=== PATIENT | female | born 1995 | race African-American/Black ===

== ENCOUNTER 2019-02-16 00:24 | Emergency (ER) | payer BC, OTHER ==
[2019-02-16] MEDS ORDERED: NS 1,000 ML IV ONE ×3 (00:34→06:06)
--- NOTE | 2019-02-16 00:34 | EDPHY ---
H & P Stated Complaint: "10 shots of vodka", "dehydration", anxiety Time Seen by Provider: 02/16/19 00:34 HPI/ROS: HPI CHIEF COMPLAINT: Alcohol intoxication HISTORY OF PRESENT ILLNESS: Patient is a 23-year-old female, presents to the emergency room for acute alcohol intoxication. Her friends brought her in out of concern how intoxicated she was. She has a chronic alcoholic. She drinks alcohol daily. In the past she has had alcohol liver disease, per the patient. States she had multiple shots 10 shots of vodka tonight. Her friends became concerned about how intoxicated she was so brought her to the emergency room for evaluation Patient states that she drinks alcohol due to anxiety, denies SI or HI, denies wanting to hurt herself or anybody else. Past Medical History: Medical history for anxiety, alcoholism daily alcohol use Past Surgical History: No recent surgery Social History: Daily alcohol use. Denies drugs or tobacco. Family History: Noncontributory ROS REVIEW OF SYSTEMS: Somewhat limited due to alcohol intoxication. Exam Constitutional intoxicated, smells of alcohol triage nursing summary reviewed, vital signs reviewed, awake/alert. Eyes normal conjunctivae and sclera, EOMI, PERRLA. HENT conjunctiva injected, normal inspection, atraumatic, moist mucus membranes , no epistaxis, neck supple/ no meningismus, no raccoon eyes. Respiratory clear to auscultation bilaterally, normal breath sounds, no respiratory distress, no wheezing. Cardiovascular rate normal, regular rhythm, no murmur, no edema, distal pulses normal. Gastrointestinal soft, non-tender, no rebound, no guarding, normal bowel sounds, no distension, no pulsatile mass. Genitourinary no CVA tenderness. Musculoskeletal no midline vertebral tenderness, full range of motion, no calf swelling, no tenderness of extremities, no meningismus, good pulses, neurovascularly intact. Skin pink, warm, & dry, no rash, skin atraumatic. Neurologic intoxicated, slurring her speech, awake, alert and oriented x 3, AAOx3, moves all 4 extremities equally, motor intact, sensory intact, CN II-XII intact, normal cerebellar, normal vision Psychiatric normal mood/affect. Heme/Lymph/Immune no lymphadenopathy. Differential Diagnosis: Includes but is not limited to in a particular order acute alcohol intoxication, dehydration, electrolyte disturbance Medical Decision Making: Plan for this patient IV establishment with IV fluid bolus basic labs, alcohol level, re-evaluate. Re-evaluation: Serum alcohol 364. 0605: Patient re-evaluated this time. Patient is clinically sober. She is stable gait, no ataxia, answers questions appropriately. She reports to me she drinks alcohol for anxiety. She denies suicidal homicidal ideation. I offered her to go to detox today however she declined this. I offered to go to detox with Librium for alcohol withdrawal however she does not want to do that she wants to go home. Her friends are at bedside/roommates. They are okay with this plan. We discussed about return precautions she understands return emergency room she develops worsening symptoms this includes vomiting, alcohol withdrawal, further alcohol intoxication. Highly recommend she stops drinking alcohol. I offered her resources. 0478: Patient re-evaluated this time resting comfortably. Heart rate 106. She is requesting to be discharged. She is clinically sober. Her father is at bedside. They would like to take her home. I did recommend that she goes to detox today, however she has declined this. Father at bedside is fine with this. They do understand that if she starts vomiting or not doing well at home they should seek medical attention or return to the emergency room. They are comfortable this plan. Source: Patient - Personal History LMP (Females 10-55): IUD In Place Current Tetanus Diphtheria and Acellular Pertussis (TDAP): Yes - Medical/Surgical History Hx Asthma: No Hx Chronic Respiratory Disease: No Hx Diabetes: No Hx Cardiac Disease: No Hx Renal Disease: No Hx Cirrhosis: No Hx Alcoholism: Yes Hx HIV/AIDS: No Hx Splenectomy or Spleen Trauma: No Other PMH: Anxiety, ETOH abuse - Social History Smoking Status: Never smoked Constitutional: Initial Vital Signs Temperature (C) 36.6 C 02/16/19 00:29 Heart Rate 131 H 02/16/19 00:29 Respiratory Rate 17 02/16/19 00:29 Blood Pressure 162/106 H 02/16/19 00:29 O2 Sat (%) 94 02/16/19 00:29 O2 Delivery Mode Room Air Allergies/Adverse Reactions: No Known Allergies Allergy (Unverified 02/16/19 00:30) Home Medications: Medication Instructions Recorded traZODone 02/16/19 Medical Decision Making - Data Points Laboratory Results: Laboratory Results 02/16/19 00:43 02/16/19 00:43 02/16/19 02/16/19 00:43 00:43 WBC 9.32 10^3/uL 10^3/uL (3.80-9.50) RBC 5.36 10^6/uL H 10^6/uL (4.18-5.33) Hgb 16.6 g/dL H g/dL (12.6-16.3) Hct 48.7 % H % (38.0-47.0) MCV 90.9 fL fL (81.5-99.8) MCH 31.0 pg pg (27.9-34.1) MCHC 34.1 g/dL g/dL (32.4-36.7) RDW 14.9 % % (11.5-15.2) Plt Count 279 10^3/uL 10^3/uL (150-400) MPV 10.4 fL fL (8.7-11.7) Neut % (Auto) 46.7 % % (39.3-74.2) Lymph % (Auto) 45.3 % H % (15.0-45.0) [place] % (Auto) 6.3 % % (4.5-13.0) Eos % (Auto) 0.5 % L % (0.6-7.6) Baso % (Auto) 1.0 % % (0.3-1.7) Nucleat RBC Rel Count 0.0 % % (0.0-0.2) Absolute Neuts (auto) 4.35 10^3/uL 10^3/uL (1.70-6.50) Absolute Lymphs (auto) 4.22 10^3/uL H 10^3/uL (1.00-3.00) Absolute Monos (auto) 0.59 10^3/uL 10^3/uL (0.30-0.80) Absolute Eos (auto) 0.05 10^3/uL 10^3/uL (0.03-0.40) Absolute Basos (auto) 0.09 10^3/uL 10^3/uL (0.02-0.10) Absolute Nucleated RBC 0.00 10^3/uL 10^3/uL (0-0.01) Immature Gran % 0.2 % % (0.0-1.1) Immature Gran # 0.02 10^3/uL 10^3/uL (0.00-0.10) Sodium 145 mEq/L mEq/L (135-145) Potassium 4.1 mEq/L mEq/L (3.5-5.2) Chloride 106 mEq/L mEq/L (97-110) Carbon Dioxide 23 mEq/l mEq/l (22-31) Anion Gap 16 mEq/L H mEq/L (6-14) BUN 13 mg/dL mg/dL (7-23) Creatinine 0.7 mg/dL mg/dL (0.6-1.0) Estimated GFR > 60 Glucose 111 mg/dL H mg/dL (70-100) Calcium 9.6 mg/dL mg/dL (8.5-10.4) Magnesium 2.1 mg/dL mg/dL (1.6-2.3) Total Bilirubin 0.4 mg/dL mg/dL (0.1-1.4) Conjugated Bilirubin 0.3 mg/dL mg/dL (0.0-0.5) Unconjugated Bilirubin 0.1 mg/dL mg/dL (0.0-1.1) AST 85 IU/L H IU/L (14-46) ALT 74 IU/L H IU/L (9-52) Alkaline Phosphatase 174 IU/L H IU/L (38-126) Total Protein 8.4 g/dL H g/dL (6.3-8.2) Albumin 4.9 g/dL g/dL (3.5-5.0) Ethyl Alcohol 364 mg/dL H mg/dL (0-10) Medications Given: Discontinued Medications Sodium Chloride (Ns) 1,000 mls @ 0 mls/hr IV EDNOW ONE; Wide Open PRN Reason: Protocol Stop: 02/16/19 00:35 Last Admin: 02/16/19 00:46 Dose: 1,000 mls Sodium Chloride (Ns) 1,000 mls @ 0 mls/hr IV ONCE ONE PRN Reason: Wide Open Stop: 02/16/19 02:17 Last Admin: 02/16/19 02:20 Dose: 1,000 mls Sodium Chloride (Ns) 1,000 mls @ 0 mls/hr IV ONCE ONE PRN Reason: Wide Open Stop: 02/16/19 06:07 Last Admin: 02/16/19 06:08 Dose: 1,000 mls Departure - Departure Disposition: Home, Routine, Self-Care Clinical Impression: Alcoholic intoxication Condition: Fair Instructions: Alcohol Intoxication (ED) Additional Instructions: 1. Please follow up with her primary care doctor 2. Return to the emergency room if you have worsening symptoms questions or concerns. Referrals: NONE *PRIMARY CARE P,. [Primary Care Provider] - As per Instructions
[2019-02-16 01:09] LABS: PLATELET COUNT 279 10^3/uL (150-400)
[2019-02-16 07:49] VITALS: BP 147/102
== END 2019-02-16 07:55 | disposition home or self-care (01) ==
DX: F10.920 Alcohol use, unspecified with intoxication, uncomplicated (principal); E86.9 Volume depletion, unspecified
CPT/HCPCS: G0480